=== PATIENT | female | born 1955 | race Caucasian/White ===

== ENCOUNTER → 2017-08-30 | Outpatient (CLI) | payer BC | END | disposition home or self-care (01) | LOC: KCIC CT 15:27 | DX: K57.30 Diverticulosis of large intestine without perforation or abscess without bleeding (principal); E11.9 Type 2 diabetes mellitus without complications | CPT/HCPCS: 74176 ==

== ENCOUNTER → 2017-09-21 | Outpatient (CLI) | payer BC ==
[2017-09-21] MEDS: IOHEXOL 300 MG/ML 100ML VIAL. IV (09:33)
== END | disposition home or self-care (01) ==
LOC: KCIC CT 08:06
DX: N28.89 Other specified disorders of kidney and ureter (principal); K57.30 Diverticulosis of large intestine without perforation or abscess without bleeding; E11.9 Type 2 diabetes mellitus without complications
CPT/HCPCS: 74160; Q9967

== ENCOUNTER 2018-01-09 12:11 | Emergency (ER) | payer BC ==
[~2018-01-09] VITALS: Ht 160 cm; Wt 95.7 kg
[2018-01-09 12:56] VITALS: BP 147/85
--- NOTE | 2018-01-09 13:30 | RAD ---
SHOULDER 2+V LEFT (AP internal and external rotation, transscapular Y) INDICATION: pain for over 2 + weeks along lateral aspect of shoulder. can extend and abduct arm said hurts more when lowering then raising. COMPARISON: None. FINDINGS: No acute fracture or malalignment. Mild acromioclavicular joint arthrosis. Bony mineralization is normal for the patient's age. No significant soft tissue abnormality. Cervical fusion hardware. IMPRESSION: 1. No acute fracture or malalignment. 2. Moderate acromioclavicular joint arthrosis. Electronically signed by: Deion Davis MD (01/09/2018 1:27 PM) [facility]
[2018-01-09] MEDS ORDERED: MELO7.5T5 PO (13:52)
--- NOTE | 2018-01-09 13:53 | PHYS DOC ---
Past Medical History Past Medical History: High Cholesterol, Hypertension Past Surgical History: Hysterectomy, Other Additional Past Surgical Histo: MASS LEFT KIDNEY CA, NO TREATMENT.C-SPINE FUSION Alcohol Use: Occasionally Drug Use: None Adult General Chief Complaint Chief Complaint: SHOULDER INJURY [facility] HPI Patient is a 62 year old female who presents with left shoulder pain 2 weeks. The patient states that she is been taking aspirin which has been relieving the pain. She denies any known injury. She states that the pain will wax and wane. She does have full range of motion but states that it is painful when she uses that arm. Review of Systems Review of Systems Constitutional: Denies fever or chills [] Eyes: Denies change in visual acuity, redness, or eye pain [] HENT: Denies nasal congestion or sore throat [] Respiratory: Denies cough or shortness of breath [] Cardiovascular: No additional information not addressed in HPI [] GI: Denies abdominal pain, nausea, vomiting, bloody stools or diarrhea [] : Denies dysuria or hematuria [] Musculoskeletal: See history of present illness Integument: Denies rash or skin lesions [] Neurologic: Denies headache, focal weakness or sensory changes [] Endocrine: Denies polyuria or polydipsia [] All other systems were reviewed and found to be within normal limits, except as documented in this note. Allergies Allergies Allergies Coded Allergies Type Severity Reaction Last Updated Verified No Known Drug Allergies 09/21/17 No Physical Exam Physical Exam Constitutional: Well developed, well nourished, no acute distress, non-toxic appearance. [] Cardiovascular:Heart rate regular rhythm, no murmur [] Lungs & Thorax: Bilateral breath sounds clear to auscultation [] Abdomen: Bowel sounds normal, soft, no tenderness, no masses, no pulsatile masses. [] Skin: Warm, dry, no erythema, no rash. [] Back: No tenderness, no CVA tenderness. [] Extremities: Left shoulder tenderness that radiates into her left upper arm, no cyanosis, no clubbing, ROM intact, no edema or ecchymosis. [] Neurologic: Alert and oriented X 3, normal motor function, normal sensory function, no focal deficits noted. [] Psychologic: Affect normal, judgement normal, mood normal. [] Current Patient Data Vital Signs Vital Signs Date Time Temp Pulse Resp B/P (MAP) Pulse Ox O2 Delivery O2 Flow Rate FiO2 01/09/18 12:56 98.0 78 20 147/85 (105) 96 Room Air 98.0 EKG EKG [] Radiology/Procedures Radiology/Procedures []PATIENT: CIARA MCKEONUNT: [id number]#: [id number] : 1955 LOCATION: ER AGE: 62 SEX: F EXAM STATUS: REG ER ORD. PHYSICIAN: CLIFFORD ROMERO APRN REASON: pain x 2 weeks, no known injury PROCEDURE: SHOULDER 2+V LEFT SHOULDER 2+V LEFT (AP internal and external rotation, transscapular Y) INDICATION: pain for over 2 + weeks along lateral aspect of shoulder. can extend and abduct arm said hurts more when lowering then raising. COMPARISON: None. FINDINGS: No acute fracture or malalignment. Mild acromioclavicular joint arthrosis. Bony mineralization is normal for the patient's age. No significant soft tissue abnormality. Cervical fusion hardware. IMPRESSION: 1. No acute fracture or malalignment. 2. Moderate acromioclavicular joint arthrosis. Electronically signed by: Deion Davis MD (01/09/2018 1:27 PM) [facility] DICTATED and SIGNED BY: DEION DAVIS MD DATE: 01/09/18 6277 Course & Med Decision Making Course & Med Decision Making Pertinent Labs and Imaging studies reviewed. (See chart for details) []The patient appears to have osteoarthritis. She is being given a prescription for Mobitz. She is to check with her primary care provider first before using this medication to make sure he is in agreement. She is in agreement with this plan Dragon Disclaimer Dragon Disclaimer This electronic medical record was generated, in whole or in part, using a voice recognition dictation system. Departure Departure Impression: Primary Impression: Osteoarthritis Disposition: 01 HOME, SELF-CARE Condition: STABLE Referrals: BALDEV FLORES (PCP) Patient Instructions: Osteoarthritis Additional Instructions: Take the medication as directed. Follow-up with your primary care provider in one week for recheck if not improving or for a referral to orthopedics. Scripts Meloxicam (MOBIC) 7.5 Mg Tablet 1 TAB PO DAILY, #30 TAB 1 Refill Prov: CLIFFORD ROMERO APRN 01/09/18 CLIFFORD ROMERO APRN Jan 09, 2018 13:53
== END 2018-01-09 14:25 | disposition home or self-care (01) ==
LOC: ER 12:11
DX: M19.012 Primary osteoarthritis, left shoulder (principal); E78.00 Pure hypercholesterolemia, unspecified; I10 Essential (primary) hypertension; Z90.710 Acquired absence of both cervix and uterus
CPT/HCPCS: 73030; 99284

== ENCOUNTER → 2018-01-20 | Outpatient (CLI) | payer BC, OTHER ==
[2018-01-09 12:56] VITALS: BP 147/85
[~2018-01-20] MED LIST: MELO7.5T5 PO
--- NOTE | 2018-01-21 08:35 | KCIC ---
EXAM: Bilateral digital screening mammogram with tomosynthesis. HISTORY: 62-year-old female presents for screening mammography. TECHNIQUE: Full-field digital craniocaudal and mediolateral oblique 2D and 3D tomosynthesis images of both breasts are obtained for evaluation. Computer aided detection with Mind-NRGD software version 9.3 was applied. COMPARISON: 01/18/2017 and 01/16/2015 BREAST PARENCHYMAL DENSITY: Level B - Scattered fibroglandular densities. FINDINGS: There is no new suspicious mass, microcalcification or region of architectural distortion. There is a stable tiny circumscribed nodule within the anterior lateral right breast. There is stable asymmetry within the retroareolar right breast in the mediolateral oblique projection. IMPRESSION: BI-RADS Category 2: Benign finding(s). RECOMMENDATION: Annual mammography is recommended. If your mammogram demonstrates that you have dense breast tissue, which could hide abnormalities, and if you have other risk factors for breast cancer that have been identified, you might benefit from supplemental screening tests that may be suggested by your ordering physician. Dense breast tissue, in and of itself, is a relatively common condition. This information is not provided to cause undue concern, but rather to raise your awareness and to promote discussion with your physician regarding the presence of other risk factors, in addition to dense breast tissue. A report of your mammography results will be sent to you and your physician. You should contact your physician if you have any questions or concerns regarding this report. Mammography is a sensitive method for finding small breast cancers, but it does not detect them all and is not a substitute for careful clinical examination. A negative mammogram does not negate a clinically suspicious finding and should not result in delay in biopsying a clinically suspicious abnormality. PQRS compliance statement - Patient information was entered into a reminder system with a target due date for the next mammogram. "Our facility is accredited by the [employer] Mammography Program." Electronically signed by: Blanca Sanders MD (01/21/2018 8:32 AM) [id number]
== END | disposition home or self-care (01) ==
LOC: KCIC MAMMO 15:21
PROVIDERS: ATTEND Internal Medicine
DX: Z12.31 Encounter for screening mammogram for malignant neoplasm of breast (principal)
CPT/HCPCS: 77063; 77067

== ENCOUNTER → 2018-02-09 | Outpatient (CLI) | payer BC ==
--- NOTE | 2018-02-09 17:06 | KCIC ---
MR of the left shoulder Indication: Left shoulder pain for about one month. No known injury.. Comparison: None are available. Technique: Standard multiplanar sequences are obtained. Findings: Artifact: No significant image degradation. Acromioclavicular joint: Mildly degenerative. Rotator cuff: * Supraspinatus-infraspinatus tendon: Mild tendinosis signal. No measurable tear. * Subscapularis tendon: Tendinosis with mild partial tearing. * Muscle bulk: Within normal limits * Subacromial subdeltoid bursa: Trace effusion. Fluid: Small glenohumeral effusion. Glenohumeral cartilage: No acute defect or advanced DJD. Labrum: No evidence of labral detachment. Biceps tendon: Intact Bones: Mild cystic change at the humeral head and greater tuberosity. No aggressive bone destruction. No acute fracture. Soft tissue: No acute findings.. Impression: Rotator cuff tendinosis. Partial tearing of the subscapularis tendon. Electronically signed by: Rick Thompson MD (02/09/2018 5:02 PM) [facility]
== END | disposition home or self-care (01) ==
LOC: KCIC MRI 16:07
PROVIDERS: ATTEND Internal Medicine
DX: M75.102 Unspecified rotator cuff tear or rupture of left shoulder, not specified as traumatic (principal); M25.412 Effusion, left shoulder
CPT/HCPCS: 73221

== ENCOUNTER → 2018-04-22 | Outpatient (CLI) | payer BC ==
[~2018-04-22] MED LIST changes: +IOHEXOL 300 MG/ML 100ML VIAL. IV ONE
--- NOTE | 2018-04-22 11:50 | KCIC ---
CT ABDOMEN PELVIS WO/W dated 04/22/2018 10:00 AM Indication: History of renal cell cancer, follow-up history of prior partial nephrectomy. Comparison: 09/21/2017 Technique: Contiguous axial imaging of the abdomen and pelvis performed with and without the administration of 100 cc Omnipaque 300. One or more of the following individualized dose reduction techniques were utilized for this examination: 1. Automated exposure control 2. Adjustment of the mA and/or kV according to patient size 3. Use of iterative reconstruction technique Findings: There is been interval partial nephrectomy at the upper to midpole left kidney laterally. Previously described solid mass is no longer visualized. There is a curvilinear low density focus along the suture line that measures about 2.7 cm in size and shows no appreciable enhancement kidneys are otherwise unremarkable. No hydronephrosis. Liver is of diffuse low density suggesting mild fatty infiltration. No apparent hepatic mass. Spleen is normal in size. Pancreas, adrenal glands unremarkable. Gallbladder unremarkable. Unopacified GI tract normal in caliber and contour. No focal bowel wall thickening. Multiple diverticula throughout the colon. No paracolonic inflammatory changes. The appendix is normal in caliber. No ascites or lymphadenopathy. There is a left-sided IVC. Images of pelvis show nondistended urinary bladder. Mild bladder wall thickening, nonspecific. No free pelvic fluid or pelvic lymphadenopathy. Limited images of lung bases show mild emphysema. Heart size within normal limits. No pleural or pericardial effusion. Bone windows show no acute findings. Multilevel spondylosis. IMPRESSION: 1. Interval partial nephrectomy on the left with no evidence of recurrent mass or abnormal enhancement. A small curvilinear hypodense collection along the suture line may represent a small resorbing postoperative hematoma or seroma. Continued follow-up imaging to ensure stability. 2. No evidence of metastatic disease. 3. Fatty infiltration of the liver. 4. Diverticulosis. 5. Left-sided IVC. Electronically signed by: Rick Carson MD (04/22/2018 11:45 AM) [id number]
== END | disposition home or self-care (01) ==
LOC: KCIC CT 09:06
PROVIDERS: ATTEND Obstetrics & Gynecology Gynecology
DX: C64.2 Malignant neoplasm of left kidney, except renal pelvis (principal); J43.9 Emphysema, unspecified; K57.30 Diverticulosis of large intestine without perforation or abscess without bleeding; K76.0 Fatty (change of) liver, not elsewhere classified; Z90.5 Acquired absence of kidney
CPT/HCPCS: 74178; 82565; Q9967

== ENCOUNTER → 2019-01-23 | Outpatient (CLI) | payer BC ==
[~2019-01-23] MED LIST changes: -IOHEXOL 300 MG/ML 100ML VIAL. IV ONE
--- NOTE | 2019-01-23 17:05 | KCIC ---
Bilateral digital screening mammograms with 3-D tomosynthesis: Reason for examination: Routine screening. Comparison is made to previous studies dated 01/20/2018 and 01/18/2017. Bilateral mammograms in CC and oblique projections were obtained with 2-D imaging and 3-D tomosynthesis imaging on a [employer] Inspiration unit and reviewed on the workstation. Interpretation was made with the benefit of CAD. The skin and nipples show no abnormalities. No abnormal axillary lymph nodes are seen. The breast parenchyma is predominantly fatty. (Breast density: Category A.) There are small parenchymal densities again seen which are stable. There are no new dominant masses, suspicious calcifications or architectural distortion. Impression: No evidence of malignancy. Recommend routine screening. BI-RAD Category 2: Benign. "Our facility is accredited by the [employer] Mammography Program." This patient's information has been entered into a reminder system for the patient to be notified with the results of her examination and a target date for the next mammogram. Electronically signed by: Vashti aEst MD (01/23/2019 5:02 PM) [id number]
== END | disposition home or self-care (01) ==
LOC: KCIC MAMMO 15:54
PROVIDERS: ATTEND Internal Medicine
DX: Z12.31 Encounter for screening mammogram for malignant neoplasm of breast (principal)
CPT/HCPCS: 77063; 77067

== ENCOUNTER → 2019-04-10 | Outpatient (CLI) | payer BC ==
[~2019-04-10] MED LIST changes: +IOHEXOL 300 MG/ML 100ML VIAL. IV ONE
--- NOTE | 2019-04-10 14:23 | KCIC ---
CT of the abdomen and pelvis with contrast 04.10.2019 INDICATION: History of renal malignancy. Follow-up exam. Prior partial left nephrectomy. COMPARISON STUDY: CT of the abdomen and pelvis April 22, 2018. TECHNIQUE: Multidetector CT imaging of the abdomen and pelvis was performed following the administration of IV contrast. FINDINGS: Postsurgical changes following partial left nephrectomy again noted. The hypodense collection the prior surgical site has continued to involute in the interim. This is an expected finding. Small left renal cysts otherwise stable. No new abnormal enhancing masses seen. Right kidney is unremarkable in appearance. No acute abnormalities or acute changes involving the solid viscera of the abdomen are identified. No bowel obstruction is seen. No free fluid or free air seen in the abdomen or pelvis. The bladder is unremarkable in appearance. The appendix is unremarkable in appearance. No pathologically enlarged retroperitoneal adenopathy is seen. No left-sided inferior vena cava is noted. Left renal vein is seen to be patent. No acute osseous changes are identified. IMPRESSION: No evidence of recurrent or metastatic disease involving the abdomen or pelvis. Redemonstration of postsurgical changes to the left kidney CT DOSING PQRS STATEMENT: One or more of the following individualized dose reduction techniques were utilized for this examination: 1. Automated exposure control 2. Adjustment of the mA and/or kV according to patient size 3. Use of iterative reconstruction technique Electronically signed by: Michel Xiao MD (04/10/2019 2:20 PM) [id number]
--- NOTE | 2019-04-10 17:07 | KCIC ---
CHEST PA LATERAL Clinical indications: History malignant neoplasm kidney. COMPARISON: No recent chest x-ray available. Most recent chest x-ray was April 13, 2008. Findings: No acute lung infiltrate or pleural effusion or pulmonary edema or lung mass or pneumothorax is seen. The heart size, pulmonary vasculature, mediastinum and both kim are unremarkable. The osseous structures appear intact. Impression: No acute radiographic abnormality is seen. Electronically signed by: Matty Page MD (04/10/2019 5:04 PM) [place] [id number]
== END | disposition home or self-care (01) ==
LOC: KCIC CT 09:39
PROVIDERS: ATTEND Internal Medicine
DX: Z08 Encounter for follow-up examination after completed treatment for malignant neoplasm (principal); N28.1 Cyst of kidney, acquired; Z85.528 Personal history of other malignant neoplasm of kidney
CPT/HCPCS: 71046; 74178; 82565; Q9967

== ENCOUNTER → 2019-05-23 | Outpatient (CLI) | payer BC ==
[~2019-05-23] MED LIST changes: -IOHEXOL 300 MG/ML 100ML VIAL. IV ONE
--- NOTE | 2019-05-23 17:32 | KCIC ---
Limited ultrasound of the right popliteal region HISTORY: Right knee pain. Possible Kaur's cyst. FINDINGS: Targeted ultrasound performed at the popliteal fossa. No abnormal fluid collection is seen. No concerning mass is demonstrated. IMPRESSION: No evidence of Kaur's cyst. Electronically signed by: Rick Thompson MD (05/23/2019 5:28 PM) [id number]
== END | disposition home or self-care (01) ==
LOC: KCIC US 15:20
PROVIDERS: ATTEND Internal Medicine
DX: M25.561 Pain in right knee (principal)
CPT/HCPCS: 76881

== ENCOUNTER → 2020-01-31 | Outpatient (CLI) | payer BC ==
--- NOTE | 2020-01-31 15:53 | KCIC ---
Bilateral digital screening mammograms with 3-D tomosynthesis: Reason for examination: Routine screening. Comparison is made to previous studies dated back to 01/16/2015. Bilateral mammograms in CC and oblique projections were obtained with 2-D imaging and 3-D tomosynthesis imaging on a [employer] Inspiration unit and reviewed on the workstation. Interpretation was made with the benefit of CAD. The skin and nipples show no abnormalities. No abnormal axillary lymph nodes are seen. The breast parenchyma shows scattered fatty and fibroglandular density. (Breast density: Category B.) There continues to be small parenchymal density with calcification in the 6:00 subareolar position of the right breast which has not changed and may represent a small fibroadenoma. There are no new dominant masses, suspicious calcifications or architectural distortion. Impression: No evidence of malignancy. Recommend routine screening. BI-RAD Category 2: Benign. "Our facility is accredited by the [employer] Mammography Program." This patient's information has been entered into a reminder system for the patient to be notified with the results of her examination and a target date for the next mammogram. Electronically signed by: Vashti East MD (01/31/2020 3:50 PM) [id number]
== END ==
LOC: KCIC MAMMO 12:41
PROVIDERS: ATTEND Internal Medicine
DX: Z12.31 Encounter for screening mammogram for malignant neoplasm of breast (principal); N64.89 Other specified disorders of breast
CPT/HCPCS: 77063; 77067

== ENCOUNTER → 2020-05-22 | Outpatient (CLI) | payer BC ==
[~2020-05-22] MED LIST changes: +CONTRAST GIVEN. MC PRN; +IOHEXOL 300 MG/ML 100ML VIAL. IV ONE
--- NOTE | 2020-05-22 15:58 | KCIC ---
CT abdomen pelvis without contrast dated 05/22/2020. Comparison made to 04/10/2019. CLINICAL INDICATION: Left renal mass with partial nephrectomy. TECHNIQUE: Continues axial imaging the abdomen pelvis performed with and without the administration of 100 cc Om nipaque 300. One or more of the following individualized dose reduction techniques were utilized for this examinat ion: 1. Automated exposure control 2. Adjustment of the mA and/or kV according to patient size 3. Use of iterative reconstruction technique. FINDINGS: There is evidence of prior partial nephrectomy at the left kidney mid to upper pole laterally with navarro ture material and/or calcifications along the lateral cortex, similar to prior study. There is some a djacent low density. No recurrent mass or abnormal enhancement. There are additional low-density foci in the lower pole left kidney and lower pole right kidney that are unchanged. Kidneys are otherwise symmetric. No hydronephrosis. Liver and spleen are homogeneous. No apparent hepatic mass. No biliary ductal dilatation. Gallbladder unremarkable. Pancreas and adrenal glands are unremarkable. Unopacified GI tract normal in caliber and contour. Sca ttered diverticula throughout the colon. No paracolonic inflammatory changes. The appendix is normal in caliber. No ascites or lymphadenopathy. Abdominal aorta normal in caliber. Images the pelvis show nondistended urinary bladder. Uterus is surgically absent. No free fluid or pe lvic lymphadenopathy. Limited images of the lung bases are clear. There is mild emphysema. Heart size is mildly enlarged. N o pleural or pericardial effusion. Small hiatal hernia. Bone windows show no acute findings. Multilevel spondylosis. IMPRESSION: 1. Postsurgical changes at the lateral aspect of the left kidney, stable from prior study. No evidenc e of recurrent mass or metastatic disease. 2. Bilateral renal cysts, unchanged. 3. Diverticulosis. 4. No new or acute findings. Electronically signed by: Rick Carson MD (05/22/2020 3:56 PM) [id number]
--- NOTE | 2020-05-22 15:59 | KCIC ---
Two-view chest dated 05/22/2020. Comparison made to 04/10/2019. Clinical data indication: Follow-up kidney neoplasm. FINDINGS: PA and lateral views obtained. Heart and mediastinal contours within normal limits. Lungs are clear. No consolidation or pleural effusion. No pneumothorax. IMPRESSION: No acute findings. Electronically signed by: Rick Carson MD (05/22/2020 3:56 PM) [id number]
== END ==
LOC: KCIC CT 14:21
PROVIDERS: ATTEND Urology
DX: N28.1 Cyst of kidney, acquired (principal); K57.30 Diverticulosis of large intestine without perforation or abscess without bleeding; Z85.528 Personal history of other malignant neoplasm of kidney; Z90.5 Acquired absence of kidney
CPT/HCPCS: 71046; 74178; 82565; Q9967

== ENCOUNTER → 2021-02-24 | Outpatient (CLI) | payer BC ==
[~2021-02-24] MED LIST changes: -CONTRAST GIVEN. MC PRN; -IOHEXOL 300 MG/ML 100ML VIAL. IV ONE
--- NOTE | 2021-02-24 16:38 | KCIC ---
Bilateral digital screening mammograms with 3-D tomosynthesis: Reason for examination: Routine screening. Comparison is made to previous studies dated back to 01/16/2015. Bilateral mammograms in CC and oblique projections were obtained with 2-D imaging and 3-D tomosynthes is imaging on a [employer] Inspiration unit and reviewed on the workstation. Interpretation was made with the benefit of CAD. The skin and nipples show no abnormalities. No abnormal axillary lymph nodes are seen. The breast par enchyma is predominantly fatty. (Breast density: Category A.) There continues to be a small nodule wi th calcifications in the retroareolar 6:00 position anteriorly in the right breast which is stable. T here are also a couple of small nodular parenchymal densities present in the upper outer quadrant rig ht breast which are stable. There are no new dominant masses, suspicious calcifications or architectu ral distortion. Impression: No evidence of malignancy. Recommend routine screening. BI-RAD Category 2: Benign. "Our facility is accredited by the [employer] Mammography Program." This patient's information has been entered into a reminder system for the patient to be notified wit h the results of her examination and a target date for the next mammogram. Electronically signed by: Vashti East MD (02/24/2021 4:35 PM) [id number]
== END ==
LOC: KCIC MAMMO 13:48
PROVIDERS: ATTEND Internal Medicine
DX: Z12.31 Encounter for screening mammogram for malignant neoplasm of breast (principal)
CPT/HCPCS: 77063; 77067

== ENCOUNTER → 2021-06-06 | Outpatient (CLI) | payer BC ==
[~2021-06-06] MED LIST changes: +IOHEXOL 300 MG/ML 100ML VIAL. IV ONE
--- NOTE | 2021-06-07 09:46 | KCIC ---
Exam performed: 2 views of the chest. Indication: Reason: KIDNEY CANCER / Spl. Instructions: / History: Date of Service: 06/06/2021 3:25 PM. Comparison : 2 views chest from 05/22/2020 Findings: PA and lateral radiographs of the chest reveal a normal cardiomediastinal contour. The lungs are jorge r. No pleural fluid is seen. The visualized osseous structures are unremarkable. Impression: No acute cardiopulmonary process seen. Electronically signed by: Eva Rojas MD (06/07/2021 9:43 AM) [facility]
--- NOTE | 2021-06-08 16:30 | KCIC ---
PQRS Compliance Statement: One or more of the following individualized dose reduction techniques were utilized for this examinat ion: 1. Automated exposure control 2. Adjustment of the mA and/or kV according to patient size 3. Use of iterative reconstruction technique Exam performed: CT abdomen and pelvis before and after contrast HISTORY: History of left renal malignancy status post partial nephrectomy. DATE OF SERVICE: 06/07/20192019. COMPARISON: Comparison made to a CT abdomen and pelvis without contrast from 05/22/2020. TECHNIQUE: Contiguous helical acquisitions are obtained through the abdomen and pelvis without IV con trast. Sagittal and coronal reformatted images are obtained and reviewed. FINDINGS: Postoperative changes of partial left nephrectomy seen with suture material calcifications along the lateral aspect of the left kidney without interval change. The postcontrast enhanced images demonstra te symmetric perfusion and excretion via both kidneys. Bilateral renal cysts. No hydronephrosis. Lung bases are essentially clear. The visualized heart is normal. The liver, spleen, pancreas and gallbladder are normal. Both adrenal glands and right kidney also lorie ears normal. Aorta is normal in caliber without aneurysm. No retroperitoneal or mesenteric lymphadeno joe seen. The small and large bowel loops are nondilated and unremarkable. Scattered colonic divert iculosis without acute diverticulitis. Urinary bladder is decompressed. Hysterectomy. No adnexal masses seen. Interrogation of bone windows demonstrates degenerative disc disease at L4-5 and L5-S1. IMPRESSION: Postoperative changes of partial left nephrectomy without evidence of recurrent/residual or metastati c disease. Bilateral renal cysts. Electronically signed by: Eva Rojas MD (06/08/2021 4:28 PM) [facility]
== END ==
LOC: KCIC CT 13:27
PROVIDERS: ATTEND Urology
DX: N28.1 Cyst of kidney, acquired (principal); M51.37 Other intervertebral disc degeneration, lumbosacral region; Z90.5 Acquired absence of kidney; Z85.528 Personal history of other malignant neoplasm of kidney
CPT/HCPCS: 71046; 74178; 82565; Q9967